=== PATIENT | male | born 1975 | race Two or more races ===

== ENCOUNTER 2017-12-21 11:08 | Emergency (ER) | payer OTHER ==
--- NOTE | 2017-12-21 11:23 | ED ---
Dizziness - HPI Summary HPI Summary: 42 male presents to ED with complaints of occasionally feeling lightheaded, weak , exhausted and this morning had a short period of feeling SOB for the past 4-5 days. All symptoms are intermittent, not associated to anything, and resolve spontaneously. Is currently asymptomatic. States he has not been getting much sleep lately and has been under quite a bit of stress with his two young children. States the most sleep he gets it ~ 6 hours. Denies SI/HI. Denies chest pain/pressure/discomfort and trouble breathing, has not experienced any. States he is a healthy [place], runs frequently and does not have any PMHx or FHX. PMHx only of colitis and FHx only of HTN. Only takes a medication for colitis. Denies abdominal pain, palpitations, recent illness, vomiting, fever/chills, rash, cough, headache, vision changes, recent trauma or injury, numbness/ tingling and one sided weakness. No other complaints. No drug use, cigarette or alcohol use. No recent travel. Has had normal appetite. Is immunized once he moved from [place] to [facility]. States he intermittently does have tinnitus at times. Admits to not drinking an appropriate amount of water and forgetting most of the time. - History Of Current Complaint Chief Complaint: EDDizziness Stated Complaint: DIZZY/SOB Time Seen by Provider: 12/21/17 11:21 Hx Obtained From: Patient Severity Initially: Mild Severity Currently: Mild Character: Lightheaded, Weak Aggravating Factor(s): Nothing Alleviating Factor(s): Nothing - spontaneous, Rest Associated Signs And Symptoms: Positive: Tinnitus - intermittently, SOB - lasting seconds, sometimes when he feels lightheaded. Negative: Nausea, Vomiting, Palpitations, Unsteady Gait, Visual Changes, Fever, Chills, Inability to Walk, Slurred Speech - Risk Factors Cardiac Risk Factors: Negative CVA Risk Factor: Negative - Allergies/Home Medications Allergies/Adverse Reactions: Allergies Allergy/AdvReac Type Severity Reaction Status Date / Time No Known Allergies Allergy Verified 12/21/17 11:12 Home Medications: Home Medications Balsalazide Disodium [Colazal] 2,250 mg PO BID 12/21/17 [History Confirmed 12/21] PMH/Surg Hx/FS Hx/Imm Hx Endocrine/Hematology History: Denies: Hx Anticoagulant Therapy, Hx Diabetes Cardiovascular History: Denies: Hx Hypertension Respiratory History: Denies: Hx Asthma, Hx Chronic Obstructive Pulmonary Disease (COPD), Other Respiratory Problems/Disorders GI History: Reports: Other GI Disorders - colitis Sensory History: Denies: Hx Contacts or Glasses Opthamlomology History: Denies: Hx Contacts or Glasses - Surgical History Surgery Procedure, Year, and Place: n/a - Immunization History Immunizations Up to Date: Yes Infectious Disease History: No Infectious Disease History: Denies: Traveled Outside the [place] in Last 30 Days - Family History Known Family History: Positive: Hypertension - Social History Alcohol Use: None Substance Use Type: Reports: None Smoking Status (MU): Never Smoked Tobacco Review of Systems Positive: Fatigue ENT: Negative Cardiovascular: Negative Respiratory: Negative Gastrointestinal: Negative Musculoskeletal: Negative Skin: Negative Positive: Weakness Positive: Other - increased stress All Other Systems Reviewed And Are Negative: Yes Physical Exam Triage Information Reviewed: Yes Vital Signs On Initial Exam: Initial Vitals Temp Pulse Resp BP Pulse Ox 97.6 F 80 16 147/83 99 12/21/17 11:12 12/21/17 11:12 12/21/17 11:12 12/21/17 11:12 12/21/17 11:12 BP improved to 126/78 Vital Signs Reviewed: Yes Appearance: Positive: Well-Appearing, No Pain Distress, Well-Nourished Skin: Positive: Warm, Skin Color Reflects Adequate Perfusion, Dry, Cold, Other - normal skin turgor. Negative: Numb, Soft, Cyanosis @, Pale, Erythema @ Head/Face: Positive: Normal Head/Face Inspection Eyes: Positive: Normal, EOMI, ANDREA, Conjunctiva Clear ENT: Positive: Normal ENT inspection, Hearing grossly normal, Pharynx normal, TMs normal, Uvula midline - airway patent, Other - moist mucous membranes. Negative: Pharyngeal erythema, Nasal congestion, Nasal drainage, TM bulging, TM dull, TM red, Tonsillar swelling, Tonsillar exudate Neck: Positive: Supple, Nontender, No Lymphadenopathy Respiratory/Lung Sounds: Positive: Clear to Auscultation, Breath Sounds Present , Other - <2 secon cap refill. Negative: Rales, Rhonchi, Wheezes Cardiovascular: Positive: Normal, RRR, Pulses are Symmetrical in both Upper and Lower Extremities. Negative: Murmur, Rub Abdomen Description: Positive: Nontender, Soft Bowel Sounds: Positive: Present Musculoskeletal: Positive: Normal, Strength/ROM Intact Neurological: Positive: Normal, Sensory/Motor Intact, Alert, Oriented to Person Place, Time, CN Intact II-III, Reflexes Intact, NV Bundle Intact Distally, Normal Gait, Heel to Toe - normal, Finger to Nose - normal, Facial Symmetry, Speech Normal - [place] Coma Scale Best Eye Response: 4 - Spontaneous Best Motor Response: 6 - Obeys Commands Best Verbal Response: 5 - Oriented Coma Scale Total: 15 Diagnostics - Vital Signs Vital Signs Temp Pulse Resp BP Pulse Ox 12/21/17 11:12 97.6 F 80 16 147/83 99 - Laboratory Result Diagrams: 12/21/17 11:29 12/21/17 11:29 Lab Statement: Any lab studies that have been ordered have been reviewed, and results considered in the medical decision making process. - Radiology chest Xray Interpretation: No Acute Changes - No radiographic evidence of acute cardiopulmonary disease. Radiology Interpretation Completed By: Radiologist - EKG EKG Cardiac Rate: NL EKG Rhythm: Sinus Rhythm ST Segment: Normal Ectopy: None EKG Interpretation: NSR EKG Comparison: No Significant Change Re-Evaluation - Re-Evaluation First Eval Re-Evaluation Time: 12:57 Change: Improved - still feeling fine, asymptomatic and without complaint, updated on all lab and imaging results. ready to be dc Dizzy Course/Dx - Course Course Of Treatment: labs, chest xray and ekg obtained. all normal, slightly decreased chloride and .1 decreased potassium. no signs of infection, anemia. unremarkable labs. chest xray and EKG normal. negative troponin, TSH and BNP. patient recieved 1 L of normal saline, feels better, asymptomatic,. normal vitals. normal orthostatics. and no concern for vertigo due to physical exam and symptoms. no recent illness. appears to be stress/anxiety/insomnia related symptoms. No risk factors or PMHx and does not have any significant symptoms concerning for other etiology. Follow up appt with PCP tomorrow. Increase fluids, recommended melatonin to assist in sleeping. Aware of worsening signs and symptoms to watch out for and return if occur. all questions answered, patient agrees and understands plan. - Diagnoses Differential Diagnosis/HQI/PQRI: Anxiety, Hyperventilation, Other - weakness, SOB, lightheadedness, dehydration Provider Diagnoses: Dehydration, Anxiety, Light-headed feeling Discharge - Discharge Plan Condition: Good Disposition: HOME Patient Education Materials: Dehydration (ED), Lightheadedness (ED), Anxiety ( ED) Referrals: Lennie Santos MD [Primary Care Provider] - 1 Day Additional Instructions: Please be sure to follow up at your primary care appointment tomorrow. Increase fluid intake, get plenty of rest. Recommend taking a small dose of OTC melatonin at bedtime to help assist in sleeping to get an appropriate amount 7- 8hours a night. Any new or worsening symptoms please seek medical attention promptly, as discussed.
[2017-12-21 11:44] LABS: ABS Basophils 0 10^3/ul (0-0.2); ABS Eosinophils 0.3 10^3/ul (0-0.6); ABS Lymphocytes 2.3 10^3/ul (1.0-4.8); ABS Monocytes 0.7 10^3/ul (0-0.8); ABS Neutrophils 3.5 10^3/ul (1.5-7.7); ABS Nucleated RBC 0 10^3/ul; Eosinophil % 4.2 % (0-6); Hematocrit 45 % (42-52); Hemoglobin 15.6 g/dl (14.0-18.0); Lymphocyte % 33.7 % (25-47); Mean Corpuscular HGB Conc 35 g/dl (31-36); Mean Corpuscular Hemoglobin 31 pg (27-31); Mean Corpuscular Volume 87 fL (80-94); Mean Platelet Volume 9 um3 (7.4-10.4); Nucleated Red Blood Cells % 0.2; Platelet Count 242 10^3/ul (150-450); Red Cell Distribution Width 13 % (10.5-15); White Blood Count 6.8 10^3/ul (3.5-10.8)
[2017-12-21 12:03] LABS: EGFR Non-African American 101.6 (>60)
[2017-12-21] MEDS ORDERED: NS 0.9% 1000 ML* 1,000 ML IV ONE (12:08)
--- NOTE | 2017-12-21 12:16 | RAD ---
INDICATION: 3 days of lightheadedness and shortness of breath COMPARISON: Chest x-ray September 29, 2016 TECHNIQUE: PA and lateral views of the chest were obtained. FINDINGS: The heart and mediastinum are normal in size and contour. The lungs are grossly clear. There is no evidence of large pleural effusion. Visualized bones are normal for the patient's age. There is no radiographic evidence of free air beneath the diaphragm IMPRESSION: No radiographic evidence of acute cardiopulmonary disease.
[2017-12-21 13:32] VITALS: BP 112/77
== END 2017-12-21 13:35 | disposition home or self-care (01) ==
LOC: ED 11:08
DX: E86.0 Dehydration (principal); F41.9 Anxiety disorder, unspecified; R42 Dizziness and giddiness; R53.1 Weakness
CPT/HCPCS: 36415; 71046; 80053; 83605; 83735; 83880; 84443; 84484; 85025; 86140; 93005; 96360; 99283

== ENCOUNTER 2018-06-13 20:24 | Emergency (ER) | payer OTHER ==
[2018-06-13 22:48] LABS: ABS Basophils 0 10^3/ul (0-0.2); ABS Eosinophils 0.3 10^3/ul (0-0.6); ABS Lymphocytes 3.4 10^3/ul (1.0-4.8); ABS Monocytes 0.9 10^3/ul (0-0.8); ABS Nucleated RBC 0 10^3/ul; Eosinophil % 2.9 % (0-6); Hematocrit 41 % (42-52); Hemoglobin 14.3 g/dl (14.0-18.0); Mean Corpuscular HGB Conc 35 g/dl (31-36); Mean Corpuscular Hemoglobin 30 pg (27-31); Mean Corpuscular Volume 87 fL (80-94); Nucleated Red Blood Cells % 0.3; Platelet Count 217 10^3/ul (150-450); Red Blood Count 4.72 10^6/ul (4.00-5.40); Red Cell Distribution Width 13 % (10.5-15); White Blood Count 8.6 10^3/ul (3.5-10.8)
[2018-06-13 23:04] LABS: EGFR Non-African American 89.1 (>60)
--- NOTE | 2018-06-13 23:08 | ED ---
Respiratory - HPI Summary HPI Summary: 42 year male presents with shortness of breath for the past week. He states this feeling that he can't breath and can't get enough air in. Does not occur when he sleeps. He states that it occurs throughout the day. He states though it may anxiety. He denies any chest pain. No cough. No fever. No abdominal pain. No nausea and vomiting. Has never had this before. Denies any family history of any respiratory issues. He denies any history of asthma. Nonsmoker. Has no medical conditions. - History of Current Complaint Chief Complaint: EDUpperRespComplaint Stated Complaint: DIFF BREATHING Time Seen by Provider: 06/13/18 22:17 Pain Intensity: 0 - Allergy/Home Medications Allergies/Adverse Reactions: Allergies Allergy/AdvReac Type Severity Reaction Status Date / Time No Known Allergies Allergy Verified 12/21/17 11:12 PMH/Surg Hx/FS Hx/Imm Hx Endocrine/Hematology History: Denies: Hx Anticoagulant Therapy, Hx Diabetes Cardiovascular History: Denies: Hx Hypertension Comment Only: Other Cardiovascular Problems/Disorders - ONE EPISODE OF PALPITATIONS 2 YEARS AGO Respiratory History: Denies: Hx Asthma, Hx Chronic Obstructive Pulmonary Disease (COPD), Other Respiratory Problems/Disorders GI History: Reports: Other GI Disorders - colitis Sensory History: Denies: Hx Contacts or Glasses Opthamlomology History: Denies: Hx Contacts or Glasses - Surgical History Surgery Procedure, Year, and Place: n/a Infectious Disease History: No Infectious Disease History: Denies: Traveled Outside the [place] in Last 30 Days - Family History Known Family History: Positive: Hypertension Negative: Respiratory Disease - Social History Alcohol Use: None Substance Use Type: Reports: None Smoking Status (MU): Never Smoked Tobacco Review of Systems Negative: Fever Negative: Chest Pain Positive: Shortness Of Breath. Negative: Cough Negative: Abdominal Pain All Other Systems Reviewed And Are Negative: Yes Physical Exam Triage Information Reviewed: Yes Vital Signs On Initial Exam: Initial Vitals Temp Pulse Resp BP Pulse Ox 97.9 F 78 16 122/75 96 06/13/18 20:27 06/13/18 20:27 06/13/18 20:27 06/13/18 20:27 06/13/18 20:27 Vital Signs Reviewed: Yes Appearance: Positive: Well-Appearing Skin: Positive: Warm, Dry Head/Face: Positive: Normal Head/Face Inspection Eyes: Positive: Normal, Conjunctiva Clear ENT: Positive: Pharynx normal Respiratory/Lung Sounds: Positive: Clear to Auscultation, Breath Sounds Present Cardiovascular: Positive: Normal, RRR Abdomen Description: Positive: Nontender, Soft Bowel Sounds: Positive: Present Musculoskeletal: Positive: Normal Neurological: Positive: Normal Psychiatric: Positive: Anxious Diagnostics - Vital Signs Vital Signs Temp Pulse Resp BP Pulse Ox 06/13/18 22:45 61 100 06/13/18 20:27 97.9 F 78 16 122/75 96 - Laboratory Lab Results: Lab Results 06/13/18 06/13/18 06/13/18 Range/Units 22:38 22:38 22:38 WBC 8.6 (3.5-10.8) 10^3/ul RBC 4.72 (4.00-5.40) 10^6/ul Hgb 14.3 (14.0-18.0) g/dl Hct 41 L (42-52) % MCV 87 (80-94) fL MCH 30 (27-31) pg MCHC 35 (31-36) g/dl RDW 13 (10.5-15) % Plt Count 217 (150-450) 10^3/ul MPV 9.0 (7.4-10.4) um3 Neut % (Auto) 46.3 (38-83) % Lymph % (Auto) 40.0 (25-47) % [place] % (Auto) 10.3 H (0-7) % Eos % (Auto) 2.9 (0-6) % Baso % (Auto) 0.5 (0-2) % Absolute Neuts (auto) 4.0 (1.5-7.7) 10^3/ul Absolute Lymphs (auto) 3.4 (1.0-4.8) 10^3/ul Absolute Monos (auto) 0.9 H (0-0.8) 10^3/ul Absolute Eos (auto) 0.3 (0-0.6) 10^3/ul Absolute Basos (auto) 0 (0-0.2) 10^3/ul Absolute Nucleated RBC 0 10^3/ul Nucleated RBC % 0.3 D-Dimer, Quantitative < 200 (Less Than 230) ng/mL Sodium 138 (135-145) mmol/L Potassium 3.7 (3.5-5.0) mmol/L Chloride 102 (101-111) mmol/L Carbon Dioxide 29 (22-32) mmol/L Anion Gap 7 (2-11) mmol/L BUN 20 (6-24) mg/dL Creatinine 0.93 (0.67-1.17) mg/dL Est GFR ( Amer) 107.8 (>60) Est GFR (Non-Af Amer) 89.1 (>60) BUN/Creatinine Ratio 21.5 H (8-20) Glucose 96 (70-100) mg/dL Calcium 9.7 (8.6-10.3) mg/dL Total Bilirubin 0.50 (0.2-1.0) mg/dL AST 25 (13-39) U/L ALT 16 (7-52) U/L Alkaline Phosphatase 86 (34-104) U/L Troponin I 0.00 (<0.04) ng/mL Total Protein 7.1 (6.4-8.9) g/dL Albumin 4.4 (3.2-5.2) g/dL Globulin 2.7 (2-4) g/dL Albumin/Globulin Ratio 1.6 (1-3) Result Diagrams: 06/13/18 22:38 06/13/18 22:38 Lab Statement: Any lab studies that have been ordered have been reviewed, and results considered in the medical decision making process. - Radiology chest Xray Interpretation: No Acute Changes Radiology Interpretation Completed By: ED Physician - EKG No standard instances Cardiac Rate: NL EKG Rhythm: Sinus Rhythm EKG Interpretation: sinus rhythm Disposition - Course Course Of Treatment: 42 year male presents with shortness of breath for the past week. He states this feeling that he can't breath and can't get enough air in. Does not occur when he sleeps. He states that it occurs throughout the day. He states though it may anxiety. He denies any chest pain. No cough. No fever. No abdominal pain. No nausea and vomiting. Has never had this before. Denies any family history of any respiratory issues. He denies any history of asthma. Nonsmoker. Has no medical conditions. On exam lungs clear to auscultation. Heart regular rate and rhythm. EKG normal sinus rhythm. Labs wbc normal. D-dimer negative. BNP and troponin normal. Chest x- ray read by me as normal. Likely anxiety. Told to practice stress relieving activities. Patient understands and agrees with plan. - Differential Dx - Cardiopulmonary Differential Diagnoses - Cardiopulmonary: CHF, Lower Resp Infection, Pulmonary Embolism - Diagnoses Provider Diagnoses: Shortness of breath Discharge - Sign-Out/Discharge Documenting (check all that apply): Patient Departure - Discharge Plan Condition: Good Disposition: HOME Referrals: Lennie Santos MD [Primary Care Provider] - Additional Instructions: lab work and chest xray were normal take deep breathes throughout the day and practice stress relieving activities follow up with primary within 5 days Return to ED if develop any new or worsening symptoms - Billing Disposition and Condition Condition: GOOD Disposition: Home
[2018-06-13 23:19] VITALS: BP 122/83
--- NOTE | 2018-06-14 07:53 | RAD ---
Indication: Shortness of breath. 2 views of the chest including dual energy PA views demonstrate no mediastinal shift. Heart is of normal size and configuration. Lung wells are clear. When compared to previous exam of December 21, 2017 no significant change is noted. IMPRESSION: No active cardiopulmonary disease is noted. R0
== END 2018-06-14 00:39 | disposition home or self-care (01) ==
LOC: ED 20:24
DX: R06.02 Shortness of breath (principal)
CPT/HCPCS: 36415; 71046; 80053; 83880; 84484; 85025; 85379; 93005; 99283